=== PATIENT | male | born 1960 | race Hispanic/Latino ===

== ENCOUNTER 2018-02-12 11:17 | Day surgery (SDC) | payer OTHER ==
[2018-02-11 14:54] VITALS: BMI 28.0
[2018-02-12] MEDS ORDERED: CEFAZOLIN 1 GM VIAL ONE (12:06)
[2018-02-12] MEDS ORDERED: Sodium Chloride 0.9% 100 ML ONE (12:06)
[2018-02-12] MEDS ORDERED: Midazolam HCl 2 mg/2 ml Vial ONE ×2 (12:08→13:04)
[2018-02-12] MEDS ORDERED: Fentanyl 100 MCG/2 ML VIAL ONE ×2 (12:08→13:04)
[2018-02-12] MEDS ORDERED: Bupivacaine PF 0.5% 30 ML VIAL ONE (12:09)
[2018-02-12] MEDS ORDERED: Bupivacaine HCl 0.5%/Epinephrine 1:200,000/PF 30 ml Vial ONE (12:51)
[2018-02-12] MEDS ORDERED: PROPOFOL 200 MG/20 ML VIAL ONE (13:00)
[2018-02-12] MEDS ORDERED: Lidocaine 1% PF 5 ML VIAL ONE (13:00)
[2018-02-12] MEDS ORDERED: Ondansetron HCl/PF 4 MG/2 ML Vial ONE (13:00)
[2018-02-12] MEDS ORDERED: Dexamethasone 20 MG/5 ML VIAL ONE (13:00)
[2018-02-12] MEDS ORDERED: PHENYLEPHRINE-NS 100 MCG/ML 10 ML SYRINGE ONE (13:00)
[2018-02-12] MEDS ORDERED: HYDROcodone/Acetaminophen 5/325 mg Tablet ONE ×2 (15:33→15:34)
--- NOTE | 2018-02-12 16:08 | RAD ---
TWO INTRAOPERATIVE FLUOROSCOPIC IMAGES RIGHT FOREARM: Date: 02-12-18 History: ORIF right forearm Comparison: 02-04-18 FINDINGS: There is a plate and screws now transfixing the previously seen fracture involving the middle one-thi rd diaphysis of the right ulnar. There is improvement in alignment of the fracture fragments. Most pr oximal distal portions of the forearm are not imaged on fluoroscopic images. Fluoroscopy: 3 seconds with total dose of 0.12 mGy*cm^2. IMPRESSION: Internal fixation of fracture right ulna. POS: [facility]
--- NOTE | 2018-02-13 10:02 | OP ---
DATE OF SURGERY: 02/12/2018 PREOPERATIVE DIAGNOSIS: Closed right ulnar shaft fracture. POSTOPERATIVE DIAGNOSIS: Closed right ulnar shaft fracture. SURGICAL PROCEDURE: Open reduction internal fixation right ulna. ANESTHESIA: General. SURGEON: Dr. Kenn Hatch INFRASTRUCTURE DEVELOPER: Ab Smith PA-C. TOURNIQUET TIME: 41 minutes at 250 mmHg. BLOOD LOSS: 5 mL. IMPLANTS: Synthes 7-hole 3.5 mm LCDCP. COMPLICATIONS: None. DRAINS: None. SPECIMEN: None. OUTCOME: Satisfactory. INDICATIONS: The patient is a 57-year-old gentleman status post ulnar shaft fracture with displaceme nt. After discussion with patient including the risks and benefits, we decided to proceed with open reduction internal fixation of this fracture. Informed consent has been obtained. I believe all que stions answered. PROCEDURE: The patient was brought to the operating room and timeout performed followed by induction of general anesthesia. Next, the patient was positioned on the OR table with the right arm on a huynh d board. Next, the limb was exsanguinated with Esmarch bandage, tourniquet inflated to 250 mmHg. A vertical incision was made overlying the fracture along the subcutaneous border of the ulna. After s kin was sharply incised, dissection was carried down between the extensor carpi ulnaris and extensor and flexor carpi ulnaris. Next subperiosteal dissection was made dorsally and then the fracture redu sweta and held in place with bone tenaculum. Next, a 7-hole 3.5 mm LCDCP was applied to this cortex an d then held in place with cortical screws proximally and distally with standard compression technique utilized. This resulted in near anatomic alignment of the fracture. It was checked both visually a s well as on AP and lateral C-arm images. The wound was then irrigated with normal saline and closed in layers with 0 Vicryl for the fascia, 2-0 Vicryl subcutaneously, and then tammy for the skin. A Xeroform gauze, Webril, and sugar tong splint was applied to the arm. Tourniquet was let down at co mpletion of dressing, and then patient was transferred to recovery room in stable condition. There w ere no complications. The patient tolerated the procedure well.
== END 2018-02-12 16:45 | disposition home or self-care (01) ==
LOC: SDC 11:17
PROVIDERS: ATTEND Orthopaedic Surgery
PROC: 0PSK04Z Reposition Right Ulna with Internal Fixation Device, Open Approach (ICD-10-PCS; principal; 2018-02-12)
DX: S52.231A Displaced oblique fracture of shaft of right ulna, initial encounter for closed fracture (principal); E11.9 Type 2 diabetes mellitus without complications; Z79.84 Long term (current) use of oral hypoglycemic drugs; Z79.1 Long term (current) use of non-steroidal anti-inflammatories (NSAID); Z79.899 Other long term (current) drug therapy; W23.1XXA Caught, crushed, jammed, or pinched between stationary objects, initial encounter
CPT/HCPCS: 76000; C1713; J0690; J2250; J3010; J7050; S0020

== ENCOUNTER 2018-07-04 02:37 | Inpatient (IN) | payer OTHER, SELFPAY ==
[2018-07-04] MEDS ORDERED: HYDROcodone/Acetaminophen 5/325 mg Tablet ONE (04:01)
[2018-07-04 04:37] LABS: Platelet Count 236 thou/uL (130-400)
[2018-07-04 04:43] LABS: PTT 27.2 SEC (22.9-36.1); Prothrombin Time 13.3 SEC (12.0-14.7)
[2018-07-04] MEDS ORDERED: Ondansetron ODT 4 MG TAB SL PRN (05:35)
[2018-07-04] MEDS ORDERED: Ondansetron HCl/PF 4 MG/2 ML Vial IVP PRN (05:35)
[2018-07-04] MEDS ORDERED: HYDROcodone/Acetaminophen 5/325 mg Tablet PO PRN ×4 (05:35→09:46)
[2018-07-04] MEDS ORDERED: Acetaminophen 325 MG TAB PO PRN ×2 (05:35→09:46)
[2018-07-04 06:26] VITALS: BMI 31.6
[2018-07-04] MEDS ORDERED: cloNIDine 0.1 MG TAB PO PRN (09:46)
[2018-07-04] MEDS ORDERED: diphenhydrAMINE 25 MG CAP PO PRN (09:46)
[2018-07-04] MEDS ORDERED: hydrALAZINE 20 MG/ML VIAL SLOW IVP PRN (09:46)
[2018-07-04] MEDS ORDERED: Ondansetron ODT 4 MG TAB PO PRN (09:46)
--- NOTE | 2018-07-04 13:12 | PDOC.EVN ---
Event Note - Event Note Event Note: I have examined and discussed patient with Indu OLSON regarding the admission for snake envenomation by Copperhead bite. Received 1 dose of Crofab antivenom and monitored for progression. No progression noted and swelling localized to dorsum L foot and ankle. Discussed treatment and home remedies once discharged. Pt and verbalized understanding and agreement with plan. Home today. Please see dictated H&P from Indu Dozier for details regarding full history.
[2018-07-04 14:58] LABS: #Eosinphils 0.3 thou/uL (0.0-0.7); #Lymphocytes 1.7 thou/uL (1.20-3.40); #Monocytes 0.4 thou/uL (0.11-0.59); #Neutrophils 5.5 thou/uL (1.40-6.50); %Basophils 0.5 % (0.0-1.0); %Eosinophils 3.3 % (0.0-10.0); %Lymphocytes 21.6 % (21.0-51.0); %Monocytes 5.4 % (0.0-10.0); %Neutrophils 69.3 % (42.0-75.0); Hemoglobin 14.9 g/dL (14.0-18.0); Mean Corpuscular HGB CONC 33.3 g/dL (32.0-36.0); Mean Corpuscular Hemoglobin 29.9 pg (27.0-31.0); Mean Corpuscular Volume 89.9 fL (78.0-98.0); Mean Platelet Volume 7.5 fL (7.4-10.4); Platelet Count 231 thou/uL (130-400); RBC Distribution Width 12.4 % (11.5-14.5); Red Blood Cell (RBC) Count 4.98 mill/uL (4.70-6.10); White Blood Cell (WBC) Count 7.9 thou/uL (4.8-10.8)
[2018-07-04 15:07] LABS: PTT 29.3 SEC (22.9-36.1); Prothrombin Time 13.3 SEC (12.0-14.7)
[2018-07-04 15:19] LABS: ALT (SGPT) 22 U/L (8-55); AST (SGOT) 16 U/L (5-34); Albumin 3.8 g/dL (3.5-5.0); Alkaline Phosphatase 69 U/L (40-150); Anion Gap 13 mmol/L (10-20); BUN (Urea Nitrogen) 17 mg/dL (8.4-25.7); Bilirubin, Total 0.5 mg/dL (0.2-1.2); Calc. Creatinine Clearance 113 mL/min (70-130); Calcium 8.5 mg/dL (7.8-10.44); Carbon Dioxide 23 mmol/L (22-29); Chloride 105 mmol/L (98-107); Estimated GFR-MDRD 90; Globulin 2.8 g/dL (2.4-3.5); Glucose 138 mg/dL (70-105); Potassium 4.1 mmol/L (3.5-5.1); Protein, Total 6.6 g/dL (6.0-8.3); Sodium 137 mmol/L (136-145)
[2018-07-04 16:23] VITALS: BP 118/72; TEMP 98.1
--- NOTE | 2018-07-04 17:21 | SS ---
DATE OF ADMISSION: 07/04/2018 DATE OF DISCHARGE: 07/04/2018 PRIMARY CARE PHYSICIAN: Dr. Soto at [place]. CHIEF COMPLAINT: Snake bite with envenomation to left foot. The patient was seen in [place] ER, started on CroFab and transferred to [place] ER and admitted here for observation. HISTORY OF PRESENT ILLNESS: The patient sustained a snake bite from a copperhead snake with envenomation yesterday afternoon, and went to the ER in [place] for evaluation. While in the ER in [place], the patient experienced increased swelling and pain, which progressed to his midcalf. The patient also complained of nausea and dizziness, and the ED physician decided to start an infusion of antivenon, CroFab. 1 dose of CroFab was administered and he was transferred here for admission and continued monitoring. Initial labs were within normal limits and we monitored him on a medical unit. PAST MEDICAL HISTORY: Patient has diabetes mellitus, type II which is controlled with oral medication. PAST SURGICAL HISTORY: Patient reports right abdomen hernia repair in 2002 and right ORIF ulna shaft fracture in January 2008. CURRENT MEDICATIONS: Patient takes metformin 500 mg p.o. b.i.d. FAMILY HISTORY: Includes a father with a history of diabetes mellitus, 2, and he is . Mother has a history of cancer. SOCIAL HISTORY: He is and lives at home with his family. He is a [employer]. He is a nonsmoker. He denies alcohol or drug use. REVIEW OF SYSTEMS: Constitutional: Negative review of systems. Historian denies chills or fever. Eyes: Negative system review. ENT: Negative ears, nose, and throat. Cardiovascular: Historian denies any chest pain or any palpitations. Respiratory: Negative review of systems, Historian denies cough or shortness of breath. GI: Currently, the patient denies any abdominal pain or any nausea. Denies diarrhea. Musculoskeletal: The patient reports pain and swelling with erythema to the left foot and ankle. Skin: Patient reports erythema and tenderness to left foot and ankle otherwise the Skin dry, normal in color. Endocrine: Negative review of systems. Heme/Lymphatic: Normal review of systems. PSYCHIATRIC: Negative review of systems. Notes all other systems reviewed and negative except as described above. PHYSICAL EXAMINATION: CONSTITUTIONAL: Vital signs have been reviewed. Patient appears nontoxic, though alert and oriented. GENERAL: Patient is in no apparent distress. HEAD: Exam findings is atraumatic, normocephalic. HEENT: Eyes: Eyes are PERRLA. Eyelids are normal to inspection. Intraocular muscles are intact. ENT: Nose appears normal. No deformities nor bleeding from nares. Mouth exam is normal. Mucous membranes are moist. NECK FINDINGS: Abnormal range of motion. Trachea is midline. RESPIRATORY: Chest: Breath sounds are clear. No wheezing, no rales. Symmetrical movement and expansion. CARDIOVASCULAR FINDINGS: Heart rate is normal rate and rhythm. Heart sounds are normal. ABDOMINAL/MALE: Nontender, bowel sounds x4 quadrants. No mass. No peritoneal signs. BACK: Includes normal inspection, normal range of motion. No CVA tenderness. EXTREMITIES: Upper extremity, normal range of motion. Lower extremity, lateral side of left foot at base of the left fifth toe with 3 puncture enriquez significant for swelling, mild erythema, tenderness to left foot, ankle, and lower calf with markings of progression of swelling. NEUROLOGIC EXAM FINDINGS: The patient is oriented to person, place, and time. Speech is normal. No focal deficits or sensory deficits. SKIN: He has +2 edema and mild erythema to left foot and ankle, otherwise dry, warm, and normal color. LYMPHATICS: Normal exam. PSYCHIATRIC: Patient is oriented to person, place and time, and normal affect. LABORATORY DATA: White blood cell count on discharge 7.9, hemoglobin 14.9, hematocrit 44.7, platelet count was 231. PT on discharge 13.3, INR 1, APTT is 29.3 and fibrinogen is 351. Sodium 137, potassium 4.1, BUN 17, creatinine 0.87 , estimated GFR is 90, glucose 138, calcium 8.5. Liver enzymes are normal. The patient received no imaging while in the hospital. ASSESSMENT: 1. Snake bite with envenomation, was observed for over 12 hours. Laboratory values remained normal. 2. Diabetes, type 2, maintained on Glucophage. PLAN: To monitor the patient as stated above, since labs remained within normal range. Patient denied any increased pain or tenderness. A decision was made to send the patient home with pain medication, tramadol #20 and close followup with his primary care in [place]. Return precautions were given. The patient agreed to plan. [facility]
[2018-07-04] MEDS ORDERED: Famotidine 20 MG TAB PO SCH (21:00)
== END 2018-07-04 16:38 | disposition home or self-care (01) | DRG 918 ==
LOC: ERS 02:37 → T4-B 03:20 → ONC 04:59
PROVIDERS: ADMIT Hospitalist; ATTEND Hospitalist
DX: T63.091A Toxic effect of venom of other snake, accidental (unintentional), initial encounter (principal); E11.9 Type 2 diabetes mellitus without complications; Z79.84 Long term (current) use of oral hypoglycemic drugs
CPT/HCPCS: 36415; 80053; 85025; 85049; 85384; 85610; 85730